=== PATIENT | female | born 1965 | race Caucasian/White ===

== ENCOUNTER → 2019-06-24 | Outpatient (CLI) | payer OTHER ==
[~2019-06-24] MED LIST: TRAMADOL HCL50 MG PO
[2019-06-24 10:12] LABS: HEMATOCRIT 45.3 % (37.0-47.0); MEAN CELL VOLUME 93.6 fl (81.0-99.0); MEAN CORPUSCULAR HGB CONC 33.1 g/dl (33.0-37.0); MEAN PLATELET VOLUME 10.1 fl (9.6-12.3); RED BLOOD COUNT 4.84 10*6/uL (4.10-5.10); RED CELL DISTRI WIDTH 12.8 % (0-14.5); WHITE BLOOD COUNT 7.8 10*3/uL (4.8-10.8)
[2019-06-24 10:49] LABS: ALBUMIN 3.9 gm/dl (3.1-4.5); BUN 12 mg/dl (7-24); CHLORIDE 103 mmol/L (98-107); POTASSIUM 3.7 mmol/L (3.5-5.1); SODIUM 138 mmol/L (136-145)
[2019-06-24 10:55] LABS: VITAMIN D, 25-HYDROXY 25.6 ng/mL (30-100)
[2019-06-24 10:56] LABS: ALKALINE PHOSPHATASE 114 U/L (45-117); CHOLESTEROL 100 mg/dL (<200); CREATININE 1.02 mg/dL (0.55-1.02); FREE T4 1.26 ng/dl (0.76-1.46); HDL CHOLESTEROL 22 mg/dl (40-60); LDL CHOLESTEROL 25 mg/dL (9-159); SGOT/AST 23 IU/L (3-35); SGPT/ALT 40 U/L (12-78); TOTAL PROTEIN 8.2 gm/dL (6.4-8.2); TRIGLYCERIDES 263 mg/dl (<150); VLDL CHOLESTEROL 53 mg/dL (6-40)
== END | disposition home or self-care (01) ==
LOC: LAB 08:55
PROVIDERS: Family Medicine
DX: E11.9 Type 2 diabetes mellitus without complications (principal); E78.00 Pure hypercholesterolemia, unspecified; E55.9 Vitamin D deficiency, unspecified; E03.9 Hypothyroidism, unspecified

== ENCOUNTER → 2019-07-06 | Outpatient (CLI) | payer OTHER | END | disposition home or self-care (01) | LOC: LAB 08:48 | DX: F31.9 Bipolar disorder, unspecified (principal); Z79.899 Other long term (current) drug therapy ==

== ENCOUNTER → 2019-10-01 | Outpatient (CLI) | payer OTHER ==
[2019-10-01 09:01] LABS: ALBUMIN 3.7 gm/dl (3.1-4.5); ALKALINE PHOSPHATASE 107 U/L (45-117); BUN 10 mg/dl (7-24); CHLORIDE 107 mmol/L (98-107); CHOLESTEROL 103 mg/dL (<200); CREATININE 0.96 mg/dL (0.55-1.02); HDL CHOLESTEROL 20 mg/dl (40-60); LDL CHOLESTEROL 21 mg/dL (9-159); POTASSIUM 3.9 mmol/L (3.5-5.1); SGOT/AST 20 IU/L (3-35); SGPT/ALT 33 U/L (12-78); SODIUM 139 mmol/L (136-145); TRIGLYCERIDES 311 mg/dl (<150); VLDL CHOLESTEROL 62 mg/dL (6-40)
[2019-10-01 09:03] LABS: CPK 34 U/L (26-192)
== END | disposition home or self-care (01) ==
LOC: LAB 07:35
PROVIDERS: Family Medicine
DX: E78.00 Pure hypercholesterolemia, unspecified (principal)

== ENCOUNTER → 2019-11-11 | Outpatient (CLI) | payer OTHER | END | disposition home or self-care (01) | LOC: COVID19 00:07 | DX: R05 Cough (principal); Z20.828 Contact with and (suspected) exposure to other viral communicable diseases ==

== ENCOUNTER 2021-08-06 17:37 | Emergency (ER) | payer OTHER ==
[~2021-08-06] VITALS: Ht 165.1 cm; Wt 106.1 kg
[2021-08-06 17:47] VITALS: BP 131/68
== END 2021-08-06 23:17 | disposition left against medical advice (07) ==
LOC: ED 17:37
DX: S09.90XA Unspecified injury of head, initial encounter (principal); M54.2 Cervicalgia; Z91.041 Radiographic dye allergy status; Z91.040 Latex allergy status; Z88.8 Allergy status to other drugs, medicaments and biological substances; Z90.710 Acquired absence of both cervix and uterus; Z87.442 Personal history of urinary calculi; Z98.890 Other specified postprocedural states; W18.39XA Other fall on same level, initial encounter; Y93.89 Activity, other specified; Y92.89 Other specified places as the place of occurrence of the external cause; Y99.8 Other external cause status